=== PATIENT | male | born 1990 | race Caucasian/White ===

== ENCOUNTER 2017-11-11 09:25 | Emergency (ER) | payer OTHER ==
[~2017-11-11] VITALS: Ht 177.8 cm; Wt 114.8 kg
[2017-11-11 09:37] VITALS: BP 129/77
--- NOTE | 2017-11-11 09:40 | NUR ---
patient to rm with steady gait
--- NOTE | 2017-11-11 09:45 | NUR ---
27m bib self with 8/10 right sided body/right sided lower back pain x 1 wk. Patient also reports of fever, hematuria, and dark mary urine. No CVA tenderness noted. Abd soft and non tender. Patient denies any abd pain or n/v/d. Patient is aox4 to person, place, situation, and time. RR are even and unlabored. Patient changed into gown. Patient positioned to comfort. Awaiting er md [place]. Will continue to monitor.
[2017-11-11 10:47] LABS: APPEARANCE,URINE HAZY (CLEAR); BILIRUBIN,URINE NEGATIVE (NEGATIVE); BLOOD, URINE 3+ (NEGATIVE); COLOR,URINE YELLOW (YELLOW); LEUKOCYTE ESTERASE ,URINE NEGATIVE (NEGATIVE); NITRITE, URINE NEGATIVE (NEGATIVE); UGLUCOSE NEGATIVE (NEGATIVE)
[2017-11-11 11:02] LABS: RBC,URINE 20-50 /HPF (0-5); WBC,URINE 0-5 (RARE) /HPF (0-5)
[2017-11-11 11:04] LABS: YEAST,URINE Rare /HPF (None Seen)
--- NOTE | 2017-11-11 11:20 | NUR ---
lab by bedside
[2017-11-11 11:40] LABS: BASOPHILS % (AUTO) 0.8 % (0.0-2.0); EOSINOPHILS # (AUTO) 0.1 K/uL (0-0.4); EOSINOPHILS % (AUTO) 1.7 % (0.0-4.0); HEMATOCRIT 40.2 % (36-52); HEMOGLOBIN 13.9 g/dL (12.0-18.0); LYMPHOCYTES # (AUTO) 2.7 K/uL (2.0-11.5); LYMPHOCYTES % (AUTO) 42.5 % (20.5-51.1); MEAN CORPUSCULAR HEMOGLOBIN 30 pg (27-31); MEAN CORPUSCULAR HGB CONC 35 g/dL (33-37); MEAN CORPUSCULAR VOLUME 85.3 fL (80-94); MONOCYTES # (AUTO) 0.5 K/uL (0.8-1.0); MONOCYTES % (AUTO) 7.4 % (1.7-9.3); NEUTROPHILS % (AUTO) 47.6 % (42.2-75.2); PLATELET COUNT (AUTO) 170 K/uL (140-450); RED BLOOD CELL COUNT(AUTO) 4.72 MIL/uL (4.20-6.10); RED CELL DISTRIBUTION WIDTH 13.1 % (11.6-13.7); WHITE BLOOD COUNT (AUTO) 6.3 K/uL (4.8-10.8)
--- NOTE | 2017-11-11 11:52 | NUR ---
Patient returned from CT scan. RN re-evaluating patient at bedside.
[2017-11-11 12:49] LABS: ALBUMIN 3.4 g/dL (3.4-5.0); ANION GAP 13.4 (8-16); CARBON DIOXIDE 26.7 mmol/L (21-32); CREATININE 0.9 mg/dL (0.7-1.3); POTASSIUM 4.1 mmol/L (3.5-5.1)
[2017-11-11 13:50] VITALS: BP 125/74
== END 2017-11-11 13:50 | disposition home or self-care (01) ==
LOC: MED 09:25
DX: R31.9 Hematuria, unspecified (principal); R10.9 Unspecified abdominal pain; R50.9 Fever, unspecified
CPT/HCPCS: 36415; 80053; 81001; 83690; 85025; 87086; 99285